=== PATIENT | female | born 1980 | race Caucasian/White ===

== ENCOUNTER → 2018-07-06 | Outpatient (CLI) | payer BC ==
--- NOTE | 2018-07-07 15:50 | MM ---
Reason for exam: clinical finding. History: Retro-pectoral saline implants in both breasts, 2006. Took hormonal contraceptives for 4 years beginning at age 17. Indicated problem(s): lump or thickening in the left breast. Physical Findings: Nurse Summary: a 0.5 cm left mass at 2 o'clock. MG 3D Diag Mammo Imp W/Cad WILMA Bilateral CC, MLO, and ID view(s) were taken. No prior studies available for comparison. The breast tissue is heterogeneously dense. This may lower the sensitivity of mammography. Bilateral retropectoral saline implants are noted. A left upper outer quadrant palpable marker is noted. Asymmetric denser breast tissue on the left. No discrete abnormality seen. ASSESSMENT: Incomplete: need additional imaging evaluation, BI-RAD 0 RECOMMENDATION: Ultrasound of the left breast.
--- NOTE | 2018-07-07 15:54 | USB ---
History: Retro-pectoral saline implants in both breasts, 2005. Took hormonal contraceptives for 4 years beginning at age 17. US Breast Limited LT Left limited breast ultrasound including focal area of concern, retroareolar and axilla demonstrates a 9 x 6 x 1.2 cm oval cystic lesion at 2 o'clock that corresponds to the palpable site. this appears benign. Patient should return at age 41 for a screening mammogram unless clinically indication to start sooner. These results were verbally communicated with the patient and result sheet given to the patient on 07/06/18. ASSESSMENT: Benign, BI-RAD 2 RECOMMENDATION: Routine screening mammogram of both breasts at age 41.
== END ==
LOC: RADMAMWWP 08:16
PROVIDERS: ATTEND Obstetrics & Gynecology
DX: N64.4 Mastodynia (principal); N63.0 Unspecified lump in unspecified breast
CPT/HCPCS: 77062; 77066

== ENCOUNTER → 2018-11-13 | Outpatient (CLI) | payer BC ==
[2018-11-13 11:10] VITALS: BP 122/74; PULSE 86; RESP 16; TEMP 98.9; BMI 29.7
--- NOTE | 2018-11-13 11:54 | P.GSHP ---
History of Present Illness H&P Date: 11/13/18 Chief Complaint: lump in her left breast Crystal is a 38-year-old white female who approximately 6months ago noticed some nodularity in the upper outer quadrant of the left breast. She at that time underwent a mammogram and ultrasound. The mammogram revealed some asymmetr ic dense tissue on the left but no discrete abnormality. She subsequently underwent an ultrasound was performed in June 2018 which revealed a 9 x 1.2 cm oval cystic lesion at 2:00 that corresponded to the palpable site. This appeared to be benign. Since that time she states that the area has increased in size. The patient states that it is uncomfortable/painful particularly near the time of her menstrual cycle. It does not change in size with respect to her menstrual cycle. The patient has had bilateral breast implants placed in 2005. No history of any trauma or infection of the breast. She does not feel anything of concern in the right breast. She does not drink any caffeine. The patient does not smoke and is not exposed to secondhand smoke. The patient is chocolate several times a week. She has not taken any hormones or control pills. Family history: 1.maternal grandfather: lung 2. paternal grandmother: blood cancer 3. paternal grandfather: colon, stomach, esophogeal cancer Memorial history: Menarche: 12 , first born at 22, breast fed: yes periods regular, last one cesia BCP: none hormoens; none Past surgical history: 1. breast augmentation 2. D&C Medical history: 1. 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 Social history: Smoke: Negative Alcohol: Negative Drugs: Negative - Constitutional Constitutional: Reports sweats - EENT Eyes: denies blurred vision, denies pain Ears: deny: decreased hearing, tinnitus Ears, nose, mouth and throat: Denies headache, Denies sore throat - Breasts Breasts: bilateral: as per HPI - Cardiovascular Cardiovascular: Denies chest pain, Denies shortness of breath - Respiratory Respiratory: Denies cough, Denies 7 - Gastrointestinal Gastrointestinal: Denies abdominal pain, Denies diarrhea, Denies nausea, Denies vomiting - Genitourinary (Female) Genitourinary: Denies dysuria, Denies hematuria - Menstruation Comment: Has had anemia in the past Menstruation: Reports period normal - Musculoskeletal Musculoskeletal: Denies myalgias - Integumentary Integumentary: Denies pruritus, Denies rash - Neurological Neurological: Denies numbness, Denies weakness - Psychiatric Psychiatric: Denies anxiety, Denies depression - Endocrine Endocrine: Denies fatigue, Denies weight change - Hematologic/Lymphatic Comment: none - Allergic/Immunologic Allergic/Immunologic: Reports seasonal allergies Past Medical History History of Any Multi-Drug Resistant Organisms: None Reported Smoking Status: Former smoker Medications and Allergies Home Medications Medication Instructions Recorded Confirmed Type Dextroamphetamine/Amphetamine 30 mg PO DAILY 11/13/18 11/13/18 History [Adderall] L.acidoph,Paracasei, B.lactis 1 each PO 11/13/18 History [Probiotic] Multivitamin [Multivitamins Adult 1 each PO 11/13/18 History Gummies] Allergies Allergy/AdvReac Type Severity Reaction Status Date / Time No Known Allergies Allergy Verified 11/13/18 11:10 Surgical - Exam Vital Signs Temp Pulse Resp BP Pulse Ox 98.9 F 86 16 122/74 100 11/13/18 11:04 11/13/18 11:04 11/13/18 11:04 11/13/18 11:04 11/13/18 11:04 BMI 29.7 - General well developed, well nourished, no distress - Eyes normal ocular movement - ENT normal pinna, no hearing loss - Neck no masses, trachea midline - Respiratory normal expansion, normal respiratory effort, clear to auscultation - Cardiovascular Rhythm: regular Heart Sounds: normal: S1, S2 - Abdomen Abdomen: soft, non tender, no guarding, no rigid, no rebound - Integumentary normal turgor - Neurologic no disoriented, no combative - Musculoskeletal normal gait, normal posture - Psychiatric oriented to time, oriented to person, oriented to place, speech is normal, memory intact breast exam: right Breasts: Multiple positional exam fibrocystic changes, implant in place, no dominant masses or nodules of concern Right axilla: No adenopathy of concern Left breast: Multiple positional exam fibrocystic changes, implant in place, at approximately the 2 o'clock position there is a small nodule approximately 2 cm in size which may be consistent with what was seen on the ultrasound Left axilla: No adenopathy of concern The area of nodularity in the left breast appears to be closely adherent to the implant, and therefore has isn't to do any needle aspiration if not done under ultrasound guidance Results ultrasound reviewed Assessment and Plan Assessment: Impression: 1. Fibrocystic breast changes 2. Palpable nodule in the left breast probable cystic lesion 3. Bilateral breast implants 4. Abnormal ultrasound and mammogram left breast Plan: 1. Will review the radiographs with the radiologist if they feel it would be indicated we will repeat her left breast ultrasound and attempted aspiration of probable change 2. Depending on results of ultrasound the patient the option if this cannot be aspirated of surgical resection 3. Continue close surveillance CC: Dr. Aldana
== END ==
LOC: WWCWWP 10:51
PROVIDERS: ATTEND Surgery
DX: Z53.9 Procedure and treatment not carried out, unspecified reason (principal)

== ENCOUNTER → 2024-07-01 | Outpatient (CLI) | payer BC ==
--- NOTE | 2024-07-02 08:31 | MM ---
Reason for Exam: Screening (asymptomatic). Last mammogram was performed 6 year(s) and 0 month(s) ago. Patient History: Menarche at age 12. First Full-Term at age 22. Hormonal Contraceptives for 4 years from age 17 until age 21. 2006, Bilateral Implants. Risk Values: Francisca 5 year model risk: 0.6%. NCI Lifetime model risk: 9.7%. Prior Study Comparison: 07/06/2018 Bilateral Diagnostic Mammogram, [facility]. Tissue Density: The breasts are heterogeneously dense, which may obscure small masses. Findings: Analyzed By CAD. Bilateral subpectoral breast implants are redemonstrated. Benign-appearing bilateral axillary lymph nodes are again seen. There is no suspicious group of microcalcifications or new suspicious mass in either breast. Overall Assessment: Benign, BI-RAD 2 Management: Screening Mammogram of both breasts in 1 year. . Patient should continue monthly self-breast exams. A clinical breast exam by your physician is recommended on an annual basis. This exam should not preclude additional follow-up of suspicious palpable abnormalities. Note on Francisca scores and lifetime risk: 1. A Francisca score greater than 3% is considered moderate risk. If this is the case, consider specialist referral to assess eligibility for a risk reducing agent. 2. If overall lifetime risk for the development of breast cancer is 20% or higher, the patient may qualify for future screening with alternating mammogram and breast MRI. [facility], , 07/02/2024 7:33 AM. Electronically signed and approved by: Dileep Bonds M.D.
== END | disposition home or self-care (01) ==
LOC: RADMAMWWP 15:26
PROVIDERS: ATTEND Family Medicine
DX: Z12.31 Encounter for screening mammogram for malignant neoplasm of breast (principal); R92.333 Mammographic heterogeneous density, bilateral breasts; Z98.82 Breast implant status
CPT/HCPCS: 77063; 77067